=== PATIENT | female | born 1965 | race Caucasian/White ===

== ENCOUNTER → 2016-12-31 | Outpatient (CLI) | payer OTHER ==
[~2016-12-31] MED LIST: HYDR2TAB2 PO; MAGN500C PO
--- NOTE | 2016-12-31 15:10 | ECHOCARDIOGRAM REPORT ---
*NOTICE TO RECEIVING DEMOCRAT AGENCY This information is strictly Confidential and protected under [place] law. [place] law prohibits you from making any further disclosure of this information unless further disclosure is expressly permitted by the written consent of the person to whom it pertains or is authorized by law. A general authorization for the release of medical or other information is not sufficient for this purpose. Hospital accepts no responsibility if the information is made available to any other person, INCLUDING THE PATIENT. Interpretation Summary * Name: GERRY CAICEDO Study Date: 12/31/2016 01:53 PM BP: 125/65 mmHg * Patient Location: [facility] HR: 55 * : 1965 (M/d/yyyy) Gender: Female Height: 69 in * Age: 51 yrs Ethnicity: CA Weight: 160 lb * Ordering Physician: Glendy rTinh * Referring Physician: Basil Trinh * Performed By: Darrian Lowe RCS * * Reason For Study: Palpitations * BSA: 1.9 m2 * Normal biventricular systolic function. * Normal chamber dimensions. * No significant valvular abnormalities. Procedure Details * A complete two-dimensional transthoracic echocardiogram was performed (2D, M-mode, Doppler and color flow Doppler). Left Ventricle * The left ventricle is normal in size. * There is normal left ventricular wall thickness. * Ejection Fraction = 65-70%. * Left ventricular systolic function is normal. * The left ventricular wall motion is normal. Right Ventricle * The right ventricle is normal in size and function. Atria * The left atrial size is normal. * Right atrial size is normal. Mitral Valve * The mitral valve is normal. * There is no mitral valve stenosis. * There is trace mitral regurgitation. Tricuspid Valve * The tricuspid valve is normal. * There is no tricuspid stenosis. * Right ventricular systolic pressure is normal. * There is trace tricuspid regurgitation. Aortic Valve * The aortic valve is trileaflet. * The aortic valve opens well. * Aortic stenosis is absent. * No aortic regurgitation is present. Pulmonic Valve * The pulmonic valve is not well visualized. * There is no significant pulmonary regurgitation. Great Vessels * The aortic root is normal size. * The aortic root and proximal ascending aorta are normal sized. Pericardium/Pleural * There is no pericardial effusion. Great Vessels * Normal inferior vena cava diameter and respiratory variation suggests normal central venous pressure. MMode 2D Measurements and Calculations IVSd 0.94 cm IVSs 1.2 cm LVIDd 4.4 cm LVIDs 2.5 cm LVPWd 0.99 cm LVPWs 1.2 cm IVS/LVPW 0.95 FS 43.3 % EDV(Teich) 86.5 ml ESV(Teich) 21.9 ml EF(Teich) 74.7 % EDV(cubed) 83.7 ml ESV(cubed) 15.2 ml EF(cubed) 81.8 % % IVS thick 23.2 % % LVPW thick 25.0 % LV mass(C)d 138.7 grams LV mass(C)dI 73.8 grams/m\S\2 LV mass(C)s 83.8 grams LV mass(C)sI 44.6 grams/m\S\2 CO(Teich) 3.6 l/min CI(Teich) 1.9 l/min/m\S\2 SV(Teich) 64.6 ml SI(Teich) 34.4 ml/m\S\2 CO(cubed) 3.8 l/min CI(cubed) 2.0 l/min/m\S\2 SV(cubed) 68.5 ml SI(cubed) 36.4 ml/m\S\2 Ao root diam 3.7 cm Ao root area 11.0 cm\S\2 ACS 2.2 cm LA dimension 3.7 cm LA/Ao 1.0 LVAd ap4 35.1 cm\S\2 LVLd ap4 8.9 cm EDV(MOD-sp4) 114.0 ml LVAs ap4 17.2 cm\S\2 LVLs ap4 6.9 cm ESV(MOD-sp4) 36.0 ml EF(MOD-sp4) 68.4 % LVAd ap2 32.9 cm\S\2 LVLd ap2 9.3 cm EDV(MOD-sp2) 99.0 ml LVAs ap2 16.0 cm\S\2 LVLs ap2 7.4 cm ESV(MOD-sp2) 30.0 ml EF(MOD-sp2) 69.7 % CO(MOD-sp4) 4.3 l/min CI(MOD-sp4) 2.3 l/min/m\S\2 SV(MOD-sp4) 78.0 ml SI(MOD-sp4) 41.5 ml/m\S\2 CO(MOD-sp2) 3.8 l/min CI(MOD-sp2) 2.0 l/min/m\S\2 SV(MOD-sp2) 69.0 ml SI(MOD-sp2) 36.7 ml/m\S\2 Doppler Measurements and Calculations MV E max haresh 68.6 cm/sec MV A max haresh 54.8 cm/sec MV E/A 1.3 MV P1/2t max haresh 65.8 cm/sec MV P1/2t 64.5 msec MVA(P1/2t) 3.4 cm\S\2 MV dec slope 298.5 cm/sec\S\2 MV dec time 0.23 sec Ao V2 max 103.2 cm/sec Ao max PG 4.3 mmHg Ao max PG (full) 1.4 mmHg LV V1 max PG 2.9 mmHg LV V1 max 84.9 cm/sec PA V2 max 71.9 cm/sec PA max PG 2.1 mmHg TR max haresh 230.8 cm/sec
== END | disposition home or self-care (01) ==
LOC: C.CPL 13:37
PROVIDERS: ATTEND Family Medicine
DX: R00.2 Palpitations (principal)

== ENCOUNTER → 2017-02-10 | Outpatient (CLI) | payer OTHER | END | disposition home or self-care (01) | LOC: C.PAPS 13:56 | PROVIDERS: ATTEND Obstetrics & Gynecology | DX: Z12.4 Encounter for screening for malignant neoplasm of cervix (principal) ==

== ENCOUNTER → 2018-01-22 | Outpatient (CLI) | payer OTHER ==
--- NOTE | 2018-01-23 15:37 | MAMMOGRAPHY REPORT ---
BILATERAL DIGITAL SCREENING MAMMOGRAM TOMOSYNTHESIS WITH CAD: 01/22/2018 CLINICAL HISTORY: Routine screening. Patient has no complaints. TECHNIQUE: Breast tomosynthesis in addition to standard 2D mammography was performed. Current study was also evaluated with a Computer Aided Detection (CAD) system. COMPARISON: Comparison is made to exams dated: 04/10/2015 mammogram - [facility], , 02/21/2009, and 09/12/2008. BREAST COMPOSITION: There are scattered areas of fibroglandular density in both breasts. FINDINGS: No suspicious masses, calcifications, or areas of architectural distortion are noted in ei ther breast. There has been no significant interval change compared to prior exams. Stable post surg ical changes from bilateral reduction mammoplasty. Scattered bilateral benign-appearing calcificatio ns are not significantly changed. There is a stable asymmetry within the left superior breast on the MLO view IMPRESSION: ACR BI-RADS CATEGORY 2: BENIGN There is no mammographic evidence of malignancy. A 1 year screening mammogram is recommended. The pa tient will receive written notification of the results. Approximately 10% of breast cancers are not detected with mammography. A negative mammographic report should not delay biopsy if a clinically suggestive mass is present. Belkis Lovett M.D. /:01/22/2018 14:44:17 Manager Risk: Katey Barajas, [facility] letter sent: Normal 1/2 BI-RADS Code: ACR BI-RADS Category 2: Benign
== END | disposition home or self-care (01) ==
LOC: C.MAMM 14:06
PROVIDERS: ATTEND Family Medicine
DX: Z12.31 Encounter for screening mammogram for malignant neoplasm of breast (principal)

== ENCOUNTER → 2018-02-20 | Outpatient (CLI) | payer OTHER | END | disposition home or self-care (01) | LOC: C.PAPS 14:28 | PROVIDERS: ATTEND Obstetrics & Gynecology | DX: Z01.411 Encounter for gynecological examination (general) (routine) with abnormal findings (principal); R87.610 Atypical squamous cells of undetermined significance on cytologic smear of cervix (ASC-US) ==